=== PATIENT | female | born 1955 | race Caucasian/White ===

== ENCOUNTER 2025-10-20 16:16 | Outpatient (AMB) | payer MEDICARE, SELFPAY ==
--- NOTE | 2025-10-20 16:37 | MHC.PC.OV ---
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 Required: No Accompanied by: Self / Same As Patient Allergies No Known Allergies Allergy (Verified 10/20/25 16:43) Medication List - Last Reconciled 10/20/25 by RAMEZ Amaya aspirin 81 mg PO DAILY biotin 5,000 mcg sublingual DAILY cetirizine (Zyrtec) 10 mg PO DAILY PRN coenzyme Q10 (H2Q CoQ10) mg PO cyanocobalamin-liver extract tabs PO estradiol (Vivelle-Dot) 1 patch transdermal 2XW valacyclovir 500 mg PO BID Tobacco use date assessed: 10/20/25 Fall risk assessment: No Falls in past year Last assessed Fall Risk: 10/20/25 Dental Screening Dental Screen Date: 10/20/25 Did you have a dental visit in the last 12 months?: Yes Did you have a dental problem in the last 6 months where you did not have access to dental care?: No HPI HPI Comments History of Present Illness Details 70 year old female with history of ophth herpes presenting to the office to establish care. Previously seen at [facility], last seen over 1 year ago. H/x ophth herpes- on valtrex 500mg BID. Continues following with ophtho Concerns: Urinary urgency- wakes multiple times per night Aging concerns Breast asymmetry- h/o b/l implants 1997. Has never had follow up MRI since. Feel R smaller than L. Overdue for mammo Previously on HRT. Would like to try this again ?mold testing Health maintenance: Due for Mammo ROS: see hpi EXAM: Constitutional - Awake and Alert, No apparent distress Eyes - PERRL Cardiovascular - S1S2, RRR, No edema Respiratory - Normal lung expansion, Normal respiratory effort, No respiratory distress, CTA bilaterally Extremities - no calf tenderness bilaterally, no swelling Skin - Warm/Dry Neurological - Alert & oriented x3 Psychological - Appropriate affect PFSH Family History (Updated 10/20/25 @ 16:46 by Keri Calderon MA) Mother No problems noted. Father No problems noted. Social History Housing: House Patient Tobacco Use Status: Former Tobacco user e-Cigarette/Vaping Use: Former Use service: No Current occupational status: employed Cognitive needs: No Hearing needs: No Vision needs: Yes (rx glasses) Questionnaire PHQ-9 Over the last 2 weeks, how often have you been bothered by any of the following problems? 1. Little interest or pleasure in doing things: not at all 2. Feeling down, depressed, or hopeless: not at all 3. Trouble falling or staying asleep, or sleeping too much: not at all 4. Feeling tired or having little energy: not at all 5. Poor appetite or overeating: not at all 6. Feeling bad about yourself - or that you are a failure or have let yourself or your family down: not at all 7. Trouble concentrating on things, such as reading the newspaper or watching television: not at all 8. Moving or speaking so slowly that other people could have noticed. Or the opposite - being so fidgety or restless that you have been moving around a lot more than usual: not at all 9. Thoughts that you would be better off or of hurting yourself in some way: not at all Total score: 0 Depression Screening Interpretation: Negative Depression Screening Done: Yes Source: Developed by Drs. Angelo Rowland, Vaishali Carson, Talon Mccurdy and colleagues, with an educational elías from [employer]. Thrive Questionnaire Date Thrive assessed: 10/20/25 I am a: Patient Within the past 12 months, did the food you bought not last and you didn't have the money to get more?: Never true Within the past 12 months, did you worry whether your food would run out before you got money to buy more?: Never true Do you have trouble paying for medicines?: No Do you have trouble getting transportation to medical appointments?: No Do you have trouble paying your heating and electricity bill?: No Do you have trouble taking care of your child, family member or friend?: No Do you have trouble with day-to-day activities such as bathing, preparing meals, shopping, managing finances, etc.?: No Are you currently unemployed and looking for a job?: No Are you interested in more education?: No THRIVE Score: 0 AUDIT C Alcohol Use Questionnaire (AUDIT-C) 1. How often do you have a drink containing alcohol?: Never 3. How often do you have six or more drinks on one occasion?: Never Total Score: 0 SHARI-7 AMB Questionnaire SHARI-7 Date SHARI - 7 assessed: 10/20/25 Feeling nervous, anxious, or on edge: 0 = Not at all Not being able to stop or control worryin = Not at all Worrying too much about different things: 0 = Not at all Trouble relaxin = Not at all Being so restless that it is hard to sit still: 0 = Not at all Becoming easily annoyed or irritable: 0 = Not at all Feeling afraid as if something awful might happen: 0 = Not at all Total SHARI-7 score (0-4 normal; 5-9 mild; 10-14 moderate; 15-21 severe): 0 Source: Developed by Drs. Angelo Rowland, Vaishali Carson, Talon Mccurdy and colleagues, with an educational elías from [employer]. Physical exam (Primary Care) Vital Signs: Last Vital Signs Temp 97.7 F 10/20/25 16:39 Pulse 72 10/20/25 16:39 BP 122/80 10/20/25 16:39 Pulse Ox 98 10/20/25 16:39 Oxygen Delivery Method Room Air 10/20/25 16:39 BMI result Body Mass Index 24.4 Tobacco/Smoking Status: Tobacco use Status Tobacco use date assessed 10/20/25 10/20/25 16:49 Patient Tobacco Use Status Former Tobacco user 10/20/25 16:49 e-Cigarette/Vaping Use Former Use 10/20/25 16:49 PHQ-9: PHQ-9 Score PHQ-9: Total score 0 10/20/25 16:52 Depression Screening Interpretation: Negative Thrive Assessment: Date of Thrive Assessment Date Thrive assessed 10/20/25 10/20/25 16:49 Coding Level of Care Code New Pt Level 4 (74878) Add On Problem Visit Only Diagnoses Encounter to establish care Z76.89 Overactive bladder N32.81 Assessment & Plan Assessment & Plan (1) Encounter to establish care: Code(s): Z76.89 - Persons encountering health services in other specified circumstances Category: Medical Plan: 70 year old female presenting to [facility]. Reviewed PMSF history. Labs ordered (2) Overactive bladder: Code(s): N32.81 - Overactive bladder Category: Medical Plan: Discussed Kegels and bladder training. INformation provided. Referred for pelvic floor therapy. Plan Routine screening labs as ordered below Declines mammo and colon cancer screening. DEXA scan ordered. She will reach out if she changes her mind Continue following for annual skin exams and use sun protection Annual eye exams Wear seat belt in car Recommend regular exercise and healthy diet Trial HRT to see if symptoms including general fatigue/worn down, overactive bladder improve Orders: Orders Basic Metabolic Panel 10/20/25 Z76.89 - Persons encountering health services in other specified circumstances Hemoglobin A1c 10/20/25 Z76.89 - Persons encountering health services in other specified circumstances Lipid Panel 10/20/25 Z76.89 - Persons encountering health services in other specified circumstances IRON PROFILE 10/20/25 E55.9 - Vitamin D deficiency, unspecified, Z76. - Persons encountering health services in other specified circumstances PT Pelvic Floor Evaluation 10/20/25 N32.81 - Overactive bladder Complete Blood Count Auto Diff 10/20/25 Z76.89 - Persons encountering health services in other specified circumstances Liver Panel 10/20/25 Z76.89 - Persons encountering health services in other specified circumstances TSH reflex Free T4 10/20/25 Z76.89 - Persons encountering health services in other specified circumstances Vitamin D 25-OH Total 10/20/25 Z76.89 - Persons encountering health services in other specified circumstances Medications: New estradiol (Vivelle-Dot) apply 1 patch for 3 days alternating with 1 patch for 4 days each week 1 patch transdermal 2XW 8 ea 3RF
[2025-10-20 16:39] VITALS: BP 122/80; PULSE 72; TEMP 36.5; O2SAT 98; BMI 24.4
--- OUTSIDE RECORDS SUMMARY | 2025-10-20 22:31 | XMS_ITS | Encounter Summary ---
Author Organization [facility] Address [address] [place] [address] Phone Care Team Providers Care Mcat Tutor Name Role Phone Estrella Gomez Primary Care Provi marlon Encounter Details Date Type Department Care Team (Late st Contact Info) Description 10/10/2022 Procedure Pass OR Admitting Dept - Virtual Department [address] [place] [address] Social History Tobacco Use Types Packs/Day Years Used Date Smoking Tobacco: Former Cigarettes Smokeless Tobacco: Never Comments Unknown Sex and Gender Information Value Date Recorded Sex Assigned at Not on file Legal Sex Female 2:04 PM EST Gender Identity Not on file Sexual Orientation Not on file documented as of this encounter Plan of Treatment Not on file documented as of this encounter Visit Diagnoses Not on filedocumented in this encounter Care Teams Mcat Tutor Relationship Specialty Start Date End Date Estrella Gomez PA [address] [place] [address] PCP - General Technical Designer 10/04/22 documented as of this encounter Additional Source Comments The information contained in this document represents components of the legal health record. It is not the complete legal health record.[facility]
--- OUTSIDE RECORDS SUMMARY | 2025-10-20 22:31 | XMS_ITS | Patient Health Record ---
Author Organization [facility] Address [address] [place] [address] Care Team Providers Care Expense Clerk Name Role Phone Jessica Dale Primary Care Provider Unavail able Compa Calzada Unavailable [phone] Allergies Allergen (clinical drug ingredient) Drug/Non Drug Allergy documented on EMR Reaction Allergy Type Onset Date Status Walnuts (uncoded) swelling of mouth Allergy Active Mcghee swelling of mouth Drug Allergy Active [place] Flavor swelling of mouth Drug Allergy Active Seasonale Unknown Drug Allergy Active Shrimp/Shell Fish sickness Drug Allergy Active Cat dander Cat Dander sneezing, swelling of mouth Allergy Active Reason For Referral No Information Medications Medication SIG (Take, Route, Frequency, Duration) Notes Start Date End Date Status Aspirin 162.5 MG 1 capsule Orally Once a day; Duration: 30 day(s) Active Phenylephrine HCl 10 MG 1 tablet as needed Orally every 4 hrs Active valACYclovir HCl 500 MG 1 tablet Orally Once a day; Duration: 10 day(s) Active ZyrTEC Allergy 10 MG 1 tablet Orally Once a day; Duration: 30 day(s) Active Valtrex Not-Taking Lamisil 250 250 MG 1 tab Oral Daily; Duration: 90 every other day 05/02/2016 Not-Taking LamISIL 250 MG TAKE 1 TABLET BY MOUTH EVERY DAY; Duration: 30 Not-Taking Immunizations Vaccine Route Administration Date Status Comme nts COVID-19 Pfizer BioNTech Vaccine Unknown 11/08/2021 Administered Unsure Dates Social History Tobacco Use: Social History Observation Description Date Details (start date - stop date) Never Smoker NA - NA Tobacco Use/Smoking Question Answer Notes Are you a: nonsmoker Alcohol Screen Question Answer Notes Did you have a drink containing alcohol in the p ast year? No Points 0 Interpretation Negative Tobacco use other than smoking: Question Answer Notes Are you an other tobacco user? No Problems Problem Type SNOMED Code ICD Code Onset Dates Problem Status W/U Status Risk Notes Problem Pain in limb (27873812) Pain in unspecified foot (M79.673) Active confirmed Problem Acquired hammer toe of right foot (3735767679064890 ) Other hammer toe(s) (acquired), right foot (M20.41) Active confirmed Problem Acquired hammer toe of left foot (2264116306590391 ) Other hammer toe(s) (acquired), left foot (M20.42) Active confirmed Problem Peripheral venous insufficiency (95706327) Venous insufficiency of both lower extremities (I87.2) Active confirmed Plan Of Treatment Pending Test Test Name Order Date X ray : Foot, left 2V 05/02/2016 X ray : Foot, right 2V 05/02/2016 *Liver Function Test (LFT) 05/02/2016 X ray : Foot, left 3V 01/02/2023 X ray : Foot, right 3V 01/02/2023 Insurance Providers Payer Name Payer Address Payer Phone Subscriber Number Group Number Insured Name Patient Relationship to Insured Coverage Start Date Coverage End Date [employer] [place] [employer] Advantage [address] [place] [address] [id number] Amee Dasilva Self - patient is the insured Medical (General) History Medical History History ICD Code Measles Mumps Chicken pox Back,Hip,and Knee pain covid-19 Surgical History Surgery Date(Month/Year) broken elbow sx 10/03/2022
--- OUTSIDE RECORDS SUMMARY | 2025-10-20 22:31 | XMS_ITS | Clinical Summary ---
Author Organization [facility] Prior to 04/05/[address] [place] [address] Care Team Providers Care Ice Handler Name Role Phone Henry Nguyen MD Primary Care Provider [phone] Allergies Active Allergy Reactions Criticality Noted Date Comments Animal Dander 08/05/2013 [place]ghee 08/05/2013 [place] 08/05/2013 Tree Nuts 08/05/2013 [place] Medications Medication Sig Dispensed Refills Start Date End Date Status Cetirizine HCl (ZyrTEC ALLERGY) 10 MG CAPS Zyrtec 10 mg capsule Take 1 capsule every day by oral route. 0 Active valACYclovir (VALTREX) 500 MG tablet valacyclovir 500 mg tablet TAKE 1 TABLET BY MOUTH 3 TIMES A DAY 0 Active Calcium 500-125 MG-UNIT TABS Calcium 500 1 tablet daily by mouth 0 Active Biotin 10 MG CAPS biotin 10,000 mcg capsule Take 1 capsule every day by oral route as directed. 0 Active Active Problems Problem Noted Date Diagnosed Date Postoperative follow-up 01/03/2019 Herman's cyst of knee, left 10/10/2018 Acute medial meniscus tear of left knee 10/10/20 18 Family History Medical History Relation Name Comments Heart disease Father Hypertension Mother Cancer Sister Relation Name Status Comments Father Mother Sister Social History Tobacco Use Types Packs/Day Years Used Date Smoking Tobacco: Former Smokeless Tobacco: Never Alcohol Use Standard Drinks/Week Comments No 0 (1 standard drink = 0.6 oz pur e alcohol) Sex and Gender Information Value Date Recorded Sex Assigned at Not on file Gender Identity Not on file Sexual Orientation Not on file Last Filed Vital Signs Vital Sign Reading Time Taken Comments Blood Pressure - - Pulse - - Temperature - - Respiratory Rate - - Oxygen Saturation - - Inhaled Oxygen Concentration - - Weight 63 kg (139 lb) 10/24/2018 10:33 AM EST Height 167.6 cm (5' 6 ) 10/24/2018 10:33 AM EST Body Mass Index 22.44 10/24/2018 10:33 AM EST Plan of Treatment Health Maintenance Due Date Last Done Comments Hepatitis C Screening 1954 COVID-19 Vaccine (#1) [birth year]03/1956 Depression Screening 1966 Preventative Health Evaluation 1972 Colon Cancer Screening (Colonoscopy) 1999 Breast Cancer Screening (Mammogram) 2004 Shingrix-Zoster Vaccine (1 o f 2) 2004 Fall Risk Assessment 2019 Osteoporosis Screening (DEXA Scan) 2019 Pneumococcal Vaccine (1 of 1 - PCV) 2019 DTap / Tdap / Td (2 - Td or Tdap) 09/16/2024 09/16/2014 Influenza Vaccine (#1) 2025 8, 07/24/2017 RSV Adult > 60+ Yrs or (1 - 1-dose 75+ series) 2029 Hepatitis B Vaccines Aged Out No long er eligible based on patient's age to complete this topic RSV Ped < 20 months Aged Out No longe r eligible based on patient's age to complete this topic Insurance Payer Benefit Plan / Group Subscriber ID Effective Dates Phone Address [facility] [id number] [address] [facility] [address] [place] [address] HMO Care Teams Ice Handler Relationship Specialty Start Date End Date Henry Nguyen MD [address] [place] [address] PCP - General Internal Medicine 09/24/18
--- OUTSIDE RECORDS SUMMARY | 2025-10-20 22:31 | XMS_ITS | Clinical Summary ---
Author Organization [facility] Address [address] [place] [address] [place] [phone] Phone Care Team Providers Care Commercial Credit Reviewer Name Role Phone Estrella Gomez Primary Care Provi marlon Allergies Active Allergy Reactions Criticality Noted Date Comments Animal Dander 08/05/2013 [place] 08/05/2013 Other reaction(s): throat feels funny [place] 08/05/2013 Peanut 10/04/2022 Other reaction(s): walnuts-throat swells Tree Nut 08/05/2013 Tree Nuts 08/05/2013 Medications multivit with minerals/lutein (MULTIVITAMIN 50 PLUS ORAL) multivitamin 1 tablet daily by mouth Active ascorbic acid, vitamin C, 100 mg Chew 3,000 mg daily. Acti ve biotin 10,000 mcg Cap daily. Active calcium carbonate-vitam in D3 500 mg-3.125 mcg (125 unit) per tablet Calcium 500 1 tablet daily by mouth Active cetirizine (ZYRTEC) 10 mg capsule daily. Active estradioL (ESTRACE) 0.01 % (0.1 mg/gram) vaginal cream estradiol 0.01% (0.1 mg/gram) vaginal cream INSERT 1 GRAM VAGINALLY AT BEDTIME EVERY MONDAY AND Monday 1 Active ana maria root (ANA MARIA, ZINGIBER OFFICINALIS,) 550 mg Cap daily. Active lidocaine (LIDODERM) 5 % lidocaine 5 % topical patch APPLY 1 PATCH BY TRANSDERMAL ROUTE ONCE DAILY (MAY WEAR UP TO 12HOURS.) Active valACYclovir (VALTREX) 500 MG tablet TAKE 1 TABLET BY MOUTH 3 TIMES A DAY FOR 90 DAYS 2 Active aspirin 325 MG tablet Take 325 mg by mouth daily. Take 1/2 daily Active ibuprofen (ADVIL,MOTRIN) 200 MG tablet Take 200 mg by mouth every 6 (six) hours as needed for pain (specific location in comments). Active traMADoL (ULTRAM) 50 mg tablet Take 1-2 tablets (50-100 mg total) by mouth every 8 (eight) hours as needed for pain (specific location in comments). 15 tablet Active Additional Information Patient not taking.Reported on 11/21/2022 Active Problems No known active problems Social History Tobacco Use Types Packs/Day Years Used Date Smoking Tobacco: Former Cigarettes Smokeless Tobacco: Never Tobacco Cessation:Counseling Given: Not Answered Education Answer Date Recorded Are you interested in more education? Not on raulito e 03/04/2023 Are you concerned about learning? Not on file 03/04/2023 No 03/04/2023 No 03/04/2023 Digital Access Answer Date Recorded No 04/02/2023 No 04/02/2023 Reliable internet access at home? Not on file 04/02/2023 Device with a working camera? Not on file Comments Unknown Sex and Gender Information Value Date Recorded Sex Assigned at Not on file Legal Sex Female 2:04 PM EST Gender Identity Not on file Sexual Orientation Not on file Last Filed Vital Signs Vital Sign Reading Time Taken Comments Blood Pressure 130/89 10/10/2022 1:15 PM EST Pulse 78 10/10/2022 1:15 PM EST Temperature 36.2 C (97.2 F) 10/10/2022 12:39 PM EST Respiratory Rate 19 10/10/2022 1:15 PM EST Oxygen Saturation 97% 10/10/2022 1:15 PM EST Inhaled Oxygen Concentration - - Weight 64.4 kg (142 lb) 10/10/2022 9:41 AM EST Height 165.1 cm (5' 5 ) 10/10/2022 9:41 AM EST Body Mass Index 23.63 10/10/2022 9:41 AM EST Plan of Treatment Health Maintenance Due Date Last Done Comments LIPID PANEL 1954 DEPRESSION SCREENING 1966 SMOKING Hx and SMOKELESS TOBACCO SCREENING 1967 HEPATITIS C SCREENING 1972 MAMMOGRAM 1994 COLOGUARD 1999 COLONOSCOPY 1999 COLORECTAL CANCER SCREENING 1999 FIT TEST 1999 FOBT 1999 SIGMOIDOSCOPY 1999 VIRTUAL COLONOSCOPY 1999 ZOSTER VACCINES (1 of 2) 2004 OSTEOPOROSIS SCREENING INITIAL (ONE-TIME) 2019 PNEUMOCOCCAL VACCINES (50+ years) (2 of 2 - PCV20 or PCV21) 10/11/2022 10/11/2021, 08/04/2020 Adult Td,Tdap Booster 09/16/2024 09/16/2014 INFLUENZA VACCINE (#1) 2025 , 08/04/2020, 10/04/2019, Additional history exists COVID-19 VACCINE ( - 2024- season) 2025 01/30/2022, 08/15/2021, 07/25/2021 RSV VACCINE (1 - 1-dose 75+ series) 2029 HEPATITIS A VACCINES Aged Out No long er eligible based on patient's age to complete this topic HIB VACCINES Aged Out No longer eligi ble based on patient's age to complete this topic MENINGOCOCCAL VACCINES (ACWY) Aged Out No longer eligible based on patient's age to complete this topic MENINGOCOCCAL VACCINES (B) Aged Out N o longer eligible based on patient's age to complete this topic Medical Devices Implanted Type Area Contract Mail Carrier Device Identifier Shelf Expiration Date Model / Serial / Lot Screw Bone 3.5x24mm Cortex Self Tapping Fully Threaded Hex Head Ss - [id number] Implanted:Qty: 1 on 10/10/2022 by Rashaad Asif MD at [facility] Left: Ulna SYNTHES [id number] / / Screw Bone 20x3.5mm Compression Ss Locking Self Tapping Full Thread T15 Stardrive Recess - [id number] Implanted:Qty: 1 on 10/10/2022 by Rashaad Asif MD at [facility] Left: Ulna SYNTHES [id number] / / Olecranon Plate 2.7x3.5 90mm 2 Hole Lcp Ss Variable Angle Left - [id number] Implanted:Qty: 1 on 10/10/2022 by Rashaad Asif MD at [facility] Left: Ulna SYNTHES [id number] / / Screw Bone 28x2.7mm Ss Variable Angle Locking Self Tapping Full Thread T8 Stardrive Recess - [id number] Implanted:Qty: 2 on 10/10/2022 by Rashaad Asif MD at [facility] Left: Ulna SYNTHES .028 / / Screw Bone 24x2.7mm Ss Variable Angle Locking Self Tapping Full Thread T8 Stardrive Recess - [id number] Implanted:Qty: 1 on 10/10/2022 by Rashaad Asif MD at [facility] Left: Ulna SYNTHES .024 / / Screw Bone 26x2.7mm Ss Variable Angle Locking Self Tapping Full Thread T8 Stardrive Recess - [id number] Implanted:Qty: 2 on 10/10/2022 by Rashaad Asif MD at [facility] Left: Ulna SYNTHES .026 / / Screw Bone 46x2.7mm Ss Variable Angle Locking Self Tapping Full Thread T8 Stardrive Recess - [id number] Implanted:Qty: 1 on 10/10/2022 by Rashaad Asif MD at [facility] Left: Ulna SYNTHES .046 / / Insurance [facility] MEDICARE HMO REPLACEMENT MEDICARE PART A & B Member Subscriber Plan / Payer (Ef fective 2019-Present) Name:Amee Dasilva Member ID:[id number] Relation to Subscriber:Self Name:Amee Dasilva Subscriber ID:[id number] Payer ID:[id number] Group ID:Not on file Type:Medicare Address: [facility] [employer] [facility]. [address] [employer] [place] MED[place] HMO REPLACEMENT MEDICARE PART A & B [employer] [place] HMO REPLACEMENT MEDICARE PART A & B [employer] [place] HMO REPLACEMENT MEDICARE PART A & B [employer] [place] HMO REPLACEMENT MEDICARE PART A & B [place] [place] H[place] REPLACEMENT MEDICARE PART A & B Member Subscriber Plan / Payer ( fective 2019-Present) Name:Amee Dasilva Member ID:[id number] Relation to Subscriber:Self Name:Amee Dasilva Subscriber ID:[id number] Payer ID:[id number] Group ID:Not on file Type:Medicare Address: [employer] [address] Advance Directives For more information, please contact: [phone] (9AM - 5PM [facility], Monday-Monday) * Full Code (Latest Code Status on File) Date Activated Date Inactivated Comments 10/10/2022 9:10 AM Question Answer Comments Code Status Confirmed With: Patient Care Teams Commercial Credit Reviewer Relationship Specialty Start Date End Date Estrelal Gomez PA [address] [facility] [address] [place] [address] PCP - General Experimental Psychologist 10/04/22 Additional Source Comments The information contained in this document represents components of the legal health record. It is not the complete legal health record.[facility]
--- OUTSIDE RECORDS SUMMARY | 2025-10-20 22:31 | XMS_ITS | Data Portability ---
Author Organization [place] - [facility], Allergy Address [address] [address] Assessment Encounter Date Assessment Date Assessment LastModified by Organization Details LastModified Time 09/11/2024 09/11/2024 Patient's pure tone thresholds remain essentially stable and reprogramming is not recommended at this time given the patient's satisfaction with sound quality. The devices were previously programmed using the [employer] hearing aid analyzer and real-ear verification was not repeated today. Left device sent to [employer] for repair. [email or web address] Not available 09/13/2024 13:05:12 Plan of Treatment Reminders Order Date Submit Date Provider Last Modified By Organization Details Last Modified Time Details Appointments None record ed. Lab None record ed. Referral None record ed. Procedures None record ed. Surgeries None record ed. Imaging None record ed. Medication Orders None record ed. Patient TargetsNo targets recorded. Patient InstructionsNo instructions recorded. Reason for Referral None Reported. Results Created Date Observation Date Name Description Value Unit Range Abnormal Flag Note LastModifiedBy Organization Detail LastModifiedTime 09/13/20 24 audio gram No observ ation record ed. BARCODE Not Available 2023 13:12:38 Result Notes None recorded. Problems Name Problem SNOMED Code Status Onset Date Resolution Date Notes Provider Name and Address Organization Details Recorded Time Sensorine ural hearing loss of bilateral ears 230549674 Active 2014 Sensorineu ral hearing loss bilaterall y; Note: Date Diagnosed: 10/21/2015 12:10 PM (389.18) Sensorin eural hearing loss, bilateral; Note: Date Diagnosed: 10/21/2015 11:57 AM (H90.3) Not Available [employer] 02:40:10 Problem Notes None recorded. Procedures Surgical History Date Name Laterality Status Provider Name and Address Organization Details Recorded Time 4 Air only Audio - 65898 completed Ender CORRAL [address] [facility], [place], [address], [facility] 09/11/2024 13:35:50 4 SRT & Speech Recognition - 40538 completed Ender CORRAL 100 [facility], [place], [address], [facility] 09/11/2024 13:35:59 Imaging Results None recorded. Procedure Notes None recorded. Medical Equipment None Reported. Allergies Allergen ID Allergen Name Allergen Category Reaction Reaction Severity Criticality Documentation Date Start Date Code Code System Note Provider Name and Address Organization Details Recorded Time 503094 walnut allergeni c extract food other Not available Not available 03/19/2024 39110 0 RxNorm React ion: Unkno wn; Not Available [facility] 4 01:12:18 Medications Name Sig Start Date Stop Date Status Note LastModified by Organization Details LastModified Time azithromycin 250 mg tablet TAKE 2 TABLETS BY MOUTH TODAY, THEN TAKE 1 TABLET DAILY FOR 4 DAYS DIRECTED active Not Available Not Available No t Available prednisone 20 mg tablet TAKE 2 TABLETS BY MOUTH EVERY DAY WITH A MEAL FOR 5 DAYS. active Not Available Not Available No t Available valacyclovir 500 mg tablet TAKE 1 TABLET BY MOUTH 3 TIMES A DAY FOR 90 DAYS active Not Available Not Available No t Available albuterol sulfate HFA 90 mcg/actuation aerosol inhaler INHALE 2 PUFFS INTO THE LUNGS EVERY 4 HOURS NEEDED FOR 30 DAYS active Not Available Not Available No t Available Vitals None Recorded Social History None recorded. Functional Status None recorded. Mental Status None recorded. Family History Nothing Reported. Medical History No medical history recorded. Gynecological HistoryNo gynecological history recorded. Obstetrics History GPAL:G 0 P 0 0 0 0 Past Encounters Encounter ID Performer Location Encounter Start Date Encounter Closed Date Diagnosis/Indication Diagnosis SNOMED-CT Code Diagnosis ICD10 Code Diagnosis IMO Codes Diagnosis Note [id number] Ender CORRAL [place] [facility] [place] [address] [facility] [place] [address] [address] [place] [address] 09/11/2024 13:33:10 09/12/2024 06:41:37 Sensorineural hearing loss of bilateral ears 793873443 H90.3 Health Concerns Section Related Observation LastModified by Organization Detai ls LastModified Time None Recorded Concern Status LastModified by Organization Details LastModified Time None Recorded Advance Directives Directive None Recorded Payers Insurance Date Sequence Insurance Name Policy Number Policy Willis Covered Member ID Willis Member ID Guarantor Name 09/11/2024 1 [facility] [id number] 01 Amee Dasilva [id number] Amee Dasilva Notes Date Note Type Note Provider Name and Address Organization Details Recorded Time 09/11/2024 text/html Patient returned for their annual fitting of amplification. They reported a change in their hearing ability. There is a complaint about the hearing aids not lasting all day for battery. This may be in part due to the amount of bluetooth streaming that the patient reports ,however, the left device was not able to be turned on and would not charge. ZONIA BYRD, [address],[place] [address], [place], [address], [facility] - [facility] 09/16/2024 13:05:48 OBGyn Episode No OBEpisode recorded.
== END 2025-10-20 17:32 | disposition home or self-care (01) ==
LOC: HO.HMCHD 16:16
PROVIDERS: Visit Provider Physician Assistant
DX: Z76.89 Persons encountering health services in other specified circumstances (principal); N32.81 Overactive bladder

== ENCOUNTER → 2025-10-20 16:16 | Outpatient (BNVA) | payer MEDICARE, SELFPAY | PROVIDERS: Visit Provider Physician Assistant | DX: Z76.89 Persons encountering health services in other specified circumstances (principal); N32.81 Overactive bladder; Z13.31 Encounter for screening for depression; Z13.39 Encounter for screening examination for other mental health and behavioral disorders | CPT/HCPCS: 96127; 99202 ==